=== PATIENT | female | born 1955 | race Caucasian/White ===

== ENCOUNTER 2017-03-17 22:25 | Inpatient (IN) | payer OTHER ==
[~2017-03-17] VITALS: Ht 167.6 cm; Wt 56.2 kg
[2017-03-17 22:28] VITALS: BP_SYST 130
[2017-03-17] MEDS ORDERED: IPRATROPIUM/ALBUTEROL SULFATE 3 ML AMPUL.NEB INH ONE (22:30)
[2017-03-17] MEDS ORDERED: NACL 0.9% 1,000 ML IV ONE (22:30)
[2017-03-17] MEDS ORDERED: MAGNESIUM SULFATE 50 ML IV ONE (22:30)
[2017-03-17 22:55] LABS: BASOPHILS % (AUTO) 0.4 % (0.0-2.0); EOSINOPHILS # (AUTO) 0.4 K/uL (0.0-0.4); EOSINOPHILS % (AUTO) 4.5 % (0.0-4.0); HEMATOCRIT 41.3 % (36-48); LYMPHOCYTES % (AUTO) 10.4 % (20.5-51.5); MEAN CORPUSCULAR HEMOGLOBIN 32 pg (27-31); MEAN CORPUSCULAR HGB CONC 34 % (32-36); MEAN CORPUSCULAR VOLUME 94 fL (79.0-98.0); MONOCYTES # (AUTO) 0.2 K/uL (0.0-1.0); MONOCYTES % (AUTO) 2.4 % (1.7-9.3); NEUTROPHILS # (AUTO) 7.9 K/uL (1.8-7.7); NEUTROPHILS % (AUTO) 82.3 % (40.0-70.0); PLATELET COUNT (AUTO) 215 K/uL (130-430); RED BLOOD CELL COUNT(AUTO) 4.39 MIL/uL (4.2-6.2); WHITE BLOOD COUNT (AUTO) 9.5 K/uL (4.8-10.8)
[2017-03-17 23:00] LABS: CALCIUM 8.3 mg/dL (8.4-11.0); CREATININE 0.79 mg/dL (0.55-1.30); POTASSIUM 3.8 mmol/L (3.5-5.1)
[2017-03-17 23:05] LABS: ALBUMIN 3.8 g/dL (3.4-4.8); TOTAL BILIRUBIN 0.3 mg/dL (0.0-1.0)
[2017-03-17 23:07] LABS: INR 0.9 (0.8-1.2); PROTHROMBIN TIME 9.8 SECS (9.5-12.5)
[2017-03-17] MEDS ORDERED: ESCI20TA PO (23:27)
[2017-03-17] MEDS ORDERED: ARIP2TAB9 PO (23:27)
[2017-03-18] VITALS (7 sets, daily range): BP systolic 106–141
[2017-03-18] MEDS ORDERED: IPRATROPIUM BROM 0.5 MG/2.5 ML VIAL.NEB (ATROVENT) INH PRN
[2017-03-18] MEDS ORDERED: ALBUTEROL SULFATE 0.083% 2.5 MG/3 ML VIAL.NEB INH PRN
[2017-03-18] MEDS ORDERED: LEVOFLOXACIN 500 MG/D5W 100 ML IV ONE (01:26)
[2017-03-18] MEDS: IPRATROPIUM BROM 0.5 MG/2.5 ML VIAL.NEB (ATROVENT) INH SCH ×6 (02:02→23:00)
[2017-03-18] MEDS: ALBUTEROL SULFATE 0.083% 2.5 MG/3 ML VIAL.NEB INH SCH ×6 (02:02→23:00)
[2017-03-18] MEDS: LEVOFLOXACIN 500 MG/D5W 100 ML IV SCH (02:15)
[2017-03-18] MEDS: CITALOPRAM HYDROBROMIDE 20 MG TABLET PO SCH (08:05)
[2017-03-18] MEDS: ARIPiprazole 2 MG TAB PO SCH (08:05)
[2017-03-18] MEDS ORDERED: methylPREDNISolone SOD SUCC/PF 62.5 MG/ML VIAL IVP ONE (10:30)
[2017-03-18 11:22] LABS: BLOOD GAS PH 7.427 (7.350-7.450)
[2017-03-18 11:23] LABS: ABG TOTAL HEMOGLOBIN 14.5 G/dL (12.0-18.0); BLOOD GAS BASE EXCESS -1.6 mmol/L (-3.0-3.0); BLOOD GAS COHb% 0.7 % (0.5-1.5); BLOOD O2Hb% 91.8 % (94.0-97.0)
[2017-03-18] MEDS: methylPREDNISolone SOD SUCC/PF 62.5 MG/ML VIAL IVP SCH ×2 (15:01→21:54)
[2017-03-18] MEDS: cefTRIAXone 1 GM in D5W 50 ML IV SCH (18:51)
[2017-03-18] MEDS: AZITHROMYCIN 250 MG in NS 250 ML IV SCH (19:37)
[2017-03-19 00:09] VITALS: BP_SYST 108
[2017-03-19] MEDS: LEVOFLOXACIN 500 MG/D5W 100 ML IV SCH (00:46)
[2017-03-19] MEDS: ALBUTEROL SULFATE 0.083% 2.5 MG/3 ML VIAL.NEB INH SCH ×6 (03:00→23:00)
[2017-03-19] MEDS: IPRATROPIUM BROM 0.5 MG/2.5 ML VIAL.NEB (ATROVENT) INH SCH ×6 (03:00→23:00)
[2017-03-19 04:02] VITALS: BP_SYST 111
[2017-03-19] MEDS: methylPREDNISolone SOD SUCC/PF 62.5 MG/ML VIAL IVP SCH ×3 (05:14→21:00)
[2017-03-19 07:30] VITALS: BP_SYST 95
[2017-03-19] MEDS: ARIPiprazole 2 MG TAB PO SCH (08:25)
[2017-03-19] MEDS: CITALOPRAM HYDROBROMIDE 20 MG TABLET PO SCH (08:25)
[2017-03-19 11:56] VITALS: BP_SYST 121
[2017-03-19] MEDS: cefTRIAXone 1 GM in D5W 50 ML IV SCH (17:10)
[2017-03-19 18:28] VITALS: BP_SYST 108
[2017-03-19] MEDS: AZITHROMYCIN 250 MG in NS 250 ML IV SCH (18:30)
[2017-03-19 19:05] VITALS: BP_SYST 112
[2017-03-20] VITALS (7 sets, daily range): BP systolic 102–120
[2017-03-20] MEDS: ALBUTEROL SULFATE 0.083% 2.5 MG/3 ML VIAL.NEB INH SCH ×6 (03:57→23:00)
[2017-03-20] MEDS: IPRATROPIUM BROM 0.5 MG/2.5 ML VIAL.NEB (ATROVENT) INH SCH ×6 (03:57→23:00)
[2017-03-20] MEDS: methylPREDNISolone SOD SUCC/PF 62.5 MG/ML VIAL IVP SCH ×3 (05:31→21:30)
[2017-03-20] MEDS: CITALOPRAM HYDROBROMIDE 20 MG TABLET PO SCH (08:40)
[2017-03-20] MEDS: ARIPiprazole 2 MG TAB PO SCH (08:40)
[2017-03-20] MEDS: cefTRIAXone 1 GM in D5W 50 ML IV SCH (17:25)
[2017-03-20] MEDS: AZITHROMYCIN 250 MG in NS 250 ML IV SCH (18:06)
[2017-03-21] VITALS (7 sets, daily range): BP systolic 113–123
[2017-03-21] MEDS: ALBUTEROL SULFATE 0.083% 2.5 MG/3 ML VIAL.NEB INH SCH ×6 (02:41→23:00)
[2017-03-21] MEDS: IPRATROPIUM BROM 0.5 MG/2.5 ML VIAL.NEB (ATROVENT) INH SCH ×6 (02:41→23:00)
[2017-03-21] MEDS: methylPREDNISolone SOD SUCC/PF 62.5 MG/ML VIAL IVP SCH ×3 (05:41→20:50)
[2017-03-21] MEDS: CITALOPRAM HYDROBROMIDE 20 MG TABLET PO SCH (08:58)
[2017-03-21] MEDS: ARIPiprazole 2 MG TAB PO SCH (08:58)
[2017-03-21] MEDS: cefTRIAXone 1 GM in D5W 50 ML IV SCH (17:34)
[2017-03-21] MEDS: AZITHROMYCIN 250 MG in NS 250 ML IV SCH (18:37)
[2017-03-22 00:49] VITALS: BP_SYST 127
[2017-03-22] MEDS: ALBUTEROL SULFATE 0.083% 2.5 MG/3 ML VIAL.NEB INH SCH ×4 (03:11→15:20)
[2017-03-22] MEDS: IPRATROPIUM BROM 0.5 MG/2.5 ML VIAL.NEB (ATROVENT) INH SCH ×4 (03:11→15:20)
[2017-03-22 03:50] VITALS: BP_SYST 130
[2017-03-22 06:49] LABS: ALBUMIN 3.2 g/dL (3.4-4.8); CALCIUM 8.6 mg/dL (8.4-11.0); CREATININE 0.73 mg/dL (0.55-1.30); POTASSIUM 4.6 mmol/L (3.5-5.1); TOTAL BILIRUBIN 0.4 mg/dL (0.0-1.0); TOTAL PROTEIN, SERUM 6.1 g/dL (6.4-8.3)
[2017-03-22 06:56] LABS: BASOPHILS % (AUTO) 0.2 % (0.0-2.0); EOSINOPHILS % (AUTO) 0.1 % (0.0-4.0); HEMATOCRIT 38.6 % (36-48); LYMPHOCYTES # (AUTO) 0.5 K/uL (1.0-5.5); LYMPHOCYTES % (AUTO) 7.6 % (20.5-51.5); MEAN CORPUSCULAR HEMOGLOBIN 32 pg (27-31); MEAN CORPUSCULAR HGB CONC 34 % (32-36); MEAN CORPUSCULAR VOLUME 95 fL (79.0-98.0); MONOCYTES # (AUTO) 0.4 K/uL (0.0-1.0); MONOCYTES % (AUTO) 5.6 % (1.7-9.3); NEUTROPHILS # (AUTO) 6.1 K/uL (1.8-7.7); NEUTROPHILS % (AUTO) 86.5 % (40.0-70.0); PLATELET COUNT (AUTO) 182 K/uL (130-430); RED BLOOD CELL COUNT(AUTO) 4.05 MIL/uL (4.2-6.2); RED CELL DISTRIBUTION WIDTH 12.7 % (9.0-15.0)
[2017-03-22 08:00] VITALS: BP_SYST 139
[2017-03-22 08:33] LABS: ABG TOTAL HEMOGLOBIN 14.1 G/dL (12.0-18.0); BLOOD GAS BASE EXCESS 1.8 mmol/L (-3.0-3.0); BLOOD GAS COHb% 0.3 % (0.5-1.5); BLOOD GAS HHB 8.4 % (0.0-6.0); BLOOD GAS PH 7.465 (7.350-7.450); BLOOD O2Hb% 91.1 % (94.0-97.0)
[2017-03-22] MEDS: ARIPiprazole 2 MG TAB PO SCH (09:03)
[2017-03-22] MEDS: methylPREDNISolone SOD SUCC/PF 62.5 MG/ML VIAL IVP SCH (09:03)
[2017-03-22] MEDS: CITALOPRAM HYDROBROMIDE 20 MG TABLET PO SCH (09:03)
[2017-03-22] MEDS ORDERED: BENZONATATE 100 MG CAPSULE (TESSALON) PO ONE (10:30)
[2017-03-22 12:00] VITALS: BP_SYST 129
[2017-03-22] MEDS ORDERED: BENZONATATE 100 MG CAPSULE (TESSALON) PO SCH (15:00)
[2017-03-22 16:23] VITALS: BP_SYST 113
[2017-03-22 16:54] VITALS: BP_SYST 113
[2017-03-22] MEDS ORDERED: METH4TAB3 PO (16:58)
[2017-03-22] MEDS ORDERED: LEVO500T20 PO (16:58)
[2017-03-22] MEDS ORDERED: FLUT1DIS3 INH (16:59)
[2017-03-22] MEDS ORDERED: ALBU0.63 IH (17:02)
== END 2017-03-22 17:45 | disposition home or self-care (01) | DRG 190 ==
LOC: SED 22:25 → SMU 23:57 → STU 03-18 09:14 → SMU 03-19 10:33
PROVIDERS: ADMIT Internal Medicine Hospice and Palliative Medicine; ATTEND Internal Medicine Hospice and Palliative Medicine
DX: J44.0 Chronic obstructive pulmonary disease with (acute) lower respiratory infection (principal); J18.9 Pneumonia, unspecified organism; J45.901 Unspecified asthma with (acute) exacerbation; J44.1 Chronic obstructive pulmonary disease with (acute) exacerbation; F41.9 Anxiety disorder, unspecified; Z96.649 Presence of unspecified artificial hip joint; F17.210 Nicotine dependence, cigarettes, uncomplicated; M81.0 Age-related osteoporosis without current pathological fracture; R07.89 Other chest pain; Z79.899 Other long term (current) drug therapy
CPT/HCPCS: 36415; 36600; 71010; 71020-TC; 71250-TC; 80053; 82803-TC; 83880; 84484; 85025; 85379; 85610-TC; 85730-TC; 87040-TC; 87070-TC; 87205-TC; 93306; 94640; 94760; 96361; 96374; 99284; 99285; J0456; J0696; J1956; J2930; J3475; J7030; J7050; J7060